=== PATIENT | male | born 1985 | race Asian ===

== ENCOUNTER 2021-08-09 18:39 | Emergency (ER) | payer SELFPAY ==
[~2021-08-09] VITALS: Ht 177.8 cm; Wt 90.7 kg
--- NOTE | 2021-08-09 18:39 | NUR ---
PT BIB SELF C/O L HAND LAC. PT IS AAOX4, NOT IN RESPIRATORY DISTRESS, V/S STABLE, KEPT RESTED AND COMFORTABLE. WILL CONTINUE TO MONITOR.
--- NOTE | 2021-08-09 18:58 | NUR ---
AT BEDSIDE FOR EVAL.
[2021-08-09] MEDS ORDERED: BACITRACIN ZINC OINT PACKET 1 EA PACKET TP ONE ×2 (19:00→20:04)
[2021-08-09] MEDS ORDERED: LIDOCAINE 1% INJ 50 ML MDV IJ ONE (20:00)
[2021-08-09] MEDS ORDERED: LIDOCAINE HCL/MPF 1% 30 ML VIAL IJ ONE (20:03)
[2021-08-09] MEDS ORDERED: CEPH500C2 PO (22:10)
[2021-08-09] MEDS ORDERED: IBUP-1955 PO (22:10)
--- NOTE | 2021-08-09 22:41 | NUR ---
Patient discharged to home in stable condition. Written and verbal after care instructions given. Patient verbalizes understanding of instruction.
[2021-08-09 23:08] VITALS: BP 154/82
== END 2021-08-09 22:41 | disposition home or self-care (01) ==
LOC: ER 18:46
DX: S61.412A Laceration without foreign body of left hand, initial encounter (principal); W26.8XXA Contact with other sharp object(s), not elsewhere classified, initial encounter; Y93.89 Activity, other specified; Y92.89 Other specified places as the place of occurrence of the external cause; Y99.8 Other external cause status
CPT/HCPCS: 12001; 73130; 99283; A6403; J3490